=== PATIENT | male | born 1945 | race Caucasian/White ===

== ENCOUNTER 2023-09-09 04:15 | Inpatient (IN) | payer OTHER ==
[~2023-09-09] VITALS: Ht 165.1 cm; Wt 49.0 kg
[2023-09-09 05:08] VITALS: PULSE 105; RESP 28; O2SAT 96
[2023-09-09] MEDS: SODIUM CHLORIDE 0.9% 1,000 ML IV ONE ×2 (05:15→09:30)
[2023-09-09] MEDS: ONDANSETRON HCL 4 MG/2 ML VIAL IV ONE ×2 (05:43→07:47)
[2023-09-09 05:52] LABS: Basophils # (auto) 0 10 ^3/uL (0-0.2); Eosinophils # (auto) 0 10 ^3/uL (0-0.8); Hematocrit 32.4 % (41.0-53.0); Hemoglobin 10.6 g/dL (13.5-17.5); Lymphocytes # (auto) 0.1 10 ^3/uL (0.4-5.4); Lymphocytes % (auto) 1.2 % (10.0-50.0); Mean Corpuscular Hemoglobin 27.2 pg (28.0-32.0); Mean Corpuscular Hgb Conc. 32.6 g/dL (32.0-36.0); Mean Corpuscular Volume 83.6 fL (80.0-100.0); Monocytes # (auto) 0.3 10 ^3/uL (0-1.3); Neutrophils # (auto) 6.6 10 ^3/uL (1.6-8.6); Neutrophils % (auto) 94.8 % (37.0-80.0); Red Blood Cells 3.88 10^6/uL (4.5-5.90); Red Cell Distribution Width 15.9 % (11.8-14.3); White Blood Cell 6.9 10^3/uL (4.4-10.8)
[2023-09-09 06:13] LABS: Alanine Aminotransferase 18 U/L (7-40); Albumin 3.3 g/dL (3.2-4.8); Alkaline Phosphatase 172 U/L (46-116); Anion Gap 11 (5-15); Aspartate Aminotransferase 43 U/L (13-40); BUN/Creatinine Ratio 25.5 (10.0-20.0); Blood Urea Nitrogen 28 mg/dL (9-23); Calcium 9.2 mg/dL (8.5-10.1); Carbon Dioxide 21 mmol/L (20-30); Chloride 109 mmol/L (98-107); Glucose 134 mg/dL (74-106); Potassium 3.1 mmol/L (3.5-5.1); Sodium 141 mmol/L (136-145); Total Protein 5.2 g/dL (5.7-8.2)
[2023-09-09 06:15] VITALS: PULSE 86; RESP 18; O2SAT 99
[2023-09-09] MEDS: NOREPINEPHRINE 8 MG/250ML KIT 250 ML IV ONE (07:30)
[2023-09-09] MEDS: NOREPINEPHRINE 8 MG/250ML KIT 250 ML IV SCH (07:30)
[2023-09-09] MEDS: guaiFENesin-DM 100/10mg/5ml SYR PO ONE (07:46)
[2023-09-09 09:29] VITALS: PULSE 78; RESP 16; O2SAT 96
[2023-09-09] MEDS ORDERED: NITROGLYCERIN 0.4 MG SL TAB SL PRN (09:30)
[2023-09-09] MEDS ORDERED: ONDANSETRON HCL 4 MG/2 ML VIAL IV PRN (09:30)
[2023-09-09] MEDS ORDERED: VANCOMYCIN PER PHARMACY 0 MG IV SCH (09:30)
[2023-09-09 09:49] LABS: INR 1.31 (0.9-1.15); Prothrombin Time 13.6 sec (9.3-11.8)
[2023-09-09] MEDS: VANCOMYCIN 750mg/150ml 150 ML IV ONE (10:00)
[2023-09-09 10:16] VITALS: BP 106/62; PULSE 74; RESP 18; RESP 21; TEMP 98.3; O2SAT 97
[2023-09-09] MEDS: ALBUTEROL SULF 2.5 MG/0.5ML(0.5%) NEB SOLN NEB ONE (10:16)
[2023-09-09 10:26] VITALS: PULSE 78; RESP 22; O2SAT 99
[2023-09-09 10:48] LABS: Base Excess -4.8 mmol/L (-2.0-2.0)
[2023-09-09 11:08] LABS: Urine Bacteria None Seen /hpf (None Seen)
[2023-09-09 11:38] LABS: Urine Blood Negative /uL (Negative); Urine Clarity Clear (Clear); Urine Color Yellow (Yellow); Urine Protein, UAD 1+ (Negative); Urine Specific Gravity 1.021 (1.001-1.035); Urine Urobilinogen 3 mg/dL (Negative); Urine WBC 4 /hpf (0 - 3)
[2023-09-09] MEDS: PIPERACILLIN-TAZOB 3.375GM 100 ML IV SCH (12:00)
[2023-09-09] MEDS: POTASSIUM CHL 20 Meq TABLET PO ONE (13:06)
[2023-09-09] MEDS: PANTOPRAZOLE 40 MG/10 ML VIAL INJ IV SCH (14:50)
[2023-09-09] MEDS: PROCHLORPERAZINE EDISYLATE 5 MG/ML 2ML VIAL IV PRN (14:50)
[2023-09-09 17:15] LABS: Alanine Aminotransferase 16 U/L (7-40); Albumin 3.2 g/dL (3.2-4.8); Alkaline Phosphatase 161 U/L (46-116); Anion Gap 10 (5-15); Aspartate Aminotransferase 35 U/L (13-40); BUN/Creatinine Ratio 29.8 (10.0-20.0); Blood Urea Nitrogen 31 mg/dL (9-23); Calcium 8.9 mg/dL (8.5-10.1); Carbon Dioxide 21 mmol/L (20-30); Chloride 111 mmol/L (98-107); Glucose 115 mg/dL (74-106); Potassium 3.4 mmol/L (3.5-5.1); Sodium 142 mmol/L (136-145)
[2023-09-09 17:16] LABS: Bilirubin, Total 1.1 mg/dL (0.2-1.0)
[2023-09-10] MEDS: VANCOMYCIN 750mg/150ml 150 ML IV SCH (04:10)
[2023-09-10 04:47] LABS: Basophils # (auto) 0 10 ^3/uL (0-0.2); Basophils % (auto) 0.1 % (0.0-2.0); Eosinophils # (auto) 0 10 ^3/uL (0-0.8); Hematocrit 30.4 % (41.0-53.0); Hemoglobin 10.1 g/dL (13.5-17.5); Lymphocytes # (auto) 0.2 10 ^3/uL (0.4-5.4); Lymphocytes % (auto) 5.3 % (10.0-50.0); Mean Corpuscular Hemoglobin 27.9 pg (28.0-32.0); Mean Corpuscular Hgb Conc. 33.2 g/dL (32.0-36.0); Monocytes # (auto) 0.2 10 ^3/uL (0-1.3); Monocytes % (auto) 5.5 % (0.0-12.0); Neutrophils # (auto) 2.9 10 ^3/uL (1.6-8.6); Neutrophils % (auto) 89.1 % (37.0-80.0); Red Blood Cells 3.62 10^6/uL (4.5-5.90); Red Cell Distribution Width 15.7 % (11.8-14.3); White Blood Cell 3.2 10^3/uL (4.4-10.8)
[2023-09-10 04:54] LABS: Alanine Aminotransferase 15 U/L (7-40); Albumin 3.1 g/dL (3.2-4.8); Alkaline Phosphatase 136 U/L (46-116); Anion Gap 9 (5-15); Aspartate Aminotransferase 28 U/L (13-40); Blood Urea Nitrogen 28 mg/dL (9-23); Calcium 8.9 mg/dL (8.5-10.1); Carbon Dioxide 20 mmol/L (20-30); Chloride 112 mmol/L (98-107); Glucose 114 mg/dL (74-106); Potassium 3.1 mmol/L (3.5-5.1); Sodium 141 mmol/L (136-145)
[2023-09-10 04:55] LABS: Bilirubin, Total 1.1 mg/dL (0.2-1.0)
[2023-09-10] MEDS: POTASSIUM CHL 20 Meq TABLET PO ONE (06:32)
[2023-09-10] MEDS: POTASSIUM CHL 20MEQ/100ML 100 ML IV SCH (07:00)
[2023-09-10 07:30] VITALS: PULSE 119; RESP 26; O2SAT 94
[2023-09-10] MEDS ORDERED: SORE THROAT SPRAY 6OZ BOTTLE MT PRN (07:45)
[2023-09-10] MEDS: MORPHINE SULFATE INJ 2 MG/ml SYRG IV PRN (08:47)
[2023-09-10] MEDS ORDERED: MORPHINE SULFATE INJ 2 MG/ml SYRG IV PRN (09:30)
[2023-09-10] MEDS ORDERED: FUROSEMIDE 40 MG/4 ML VIAL IV ONE (11:45)
[2023-09-10 12:00] VITALS: PULSE 74; RESP 21; O2SAT 97
[2023-09-10] MEDS: IPRATROPIUM BROM 0.5 MG/2.5ML INH SOL NEB SCH (12:00)
[2023-09-10] MEDS: ALBUTEROL SULF 2.5 MG/0.5ML(0.5%) NEB SOLN NEB SCH (12:00)
[2023-09-10 12:10] VITALS: PULSE 78; RESP 22; O2SAT 100
[2023-09-10] MEDS: FUROSEMIDE 20 MG/2 ML VIAL IV ONE (12:43)
[2023-09-10] MEDS: SODIUM CHLORIDE 0.9% 1,000 ML IV ONE (12:45)
[2023-09-10] MEDS ORDERED: NOREPINEPHRINE 8 MG/250ML KIT 250 ML IV SCH (15:45)
[2023-09-10 20:00] VITALS: PULSE 100; RESP 24; O2SAT 93
[2023-09-11] VITALS (9 sets, daily range): BP systolic 87–115; BP diastolic 47–67; PULSE 59–104; RESP 17–22; TEMP 96.7–98; O2SAT 85–92
[2023-09-11] MEDS: MORPHINE SULFATE INJ 2 MG/ml SYRG IV PRN (04:41)
[2023-09-11] MEDS: LORazepam 2MG/ML-1ML VIAL IV PRN (13:28)
[2023-09-12] VITALS (7 sets, daily range): BP systolic 89–124; BP diastolic 51–75; PULSE 23–101; RESP 18–92; TEMP 96.4–98.7; O2SAT 77–95
[2023-09-12] MEDS: SOD CHL 0.45% 1,000 ML IV SCH (12:33)
[2023-09-13 01:00] VITALS: BP 124/75; PULSE 64; RESP 15; TEMP 96.4; O2SAT 78
[2023-09-13 05:00] VITALS: BP 107/65; PULSE 100; RESP 17
[2023-09-13 09:00] VITALS: BP 107/67; PULSE 81; RESP 20; TEMP 97; O2SAT 83
[2023-09-13 10:00] VITALS: O2SAT 87
[2023-09-13 13:00] VITALS: BP 84/55; PULSE 91; RESP 22; TEMP 97.6; O2SAT 80
== END 2023-09-13 21:28 | DRG 871 ==
LOC: ER 04:15 → EDBD 04:15 → OVERFLOW 09:22 → TELE 09:22 → UNDOADMIN 09:22 → OVERFLOW 09-10 18:36 → WEST WING 09-11 02:57
PROVIDERS: ADMIT Internal Medicine; ATTEND Student in an Organized Health Care Education/Training Program
PROC: 0W9G3ZZ Drainage of Peritoneal Cavity, Percutaneous Approach (ICD-10-PCS; principal; 2023-09-10)
DX: A41.9 Sepsis, unspecified organism (principal); J18.9 Pneumonia, unspecified organism; R65.21 Severe sepsis with septic shock; J96.01 Acute respiratory failure with hypoxia; J69.0 Pneumonitis due to inhalation of food and vomit; C15.9 Malignant neoplasm of esophagus, unspecified; I24.89 Other forms of acute ischemic heart disease; Z68.1 Body mass index [BMI] 19.9 or less, adult; R62.7 Adult failure to thrive; C10.9 Malignant neoplasm of oropharynx, unspecified; N18.30 Chronic kidney disease, stage 3 unspecified; K21.9 Gastro-esophageal reflux disease without esophagitis; K56.41 Fecal impaction; K80.20 Calculus of gallbladder without cholecystitis without obstruction; Z66 Do not resuscitate; Z85.01 Personal history of malignant neoplasm of esophagus; Z51.5 Encounter for palliative care; Z85.818 Personal history of malignant neoplasm of other sites of lip, oral cavity, and pharynx
CPT/HCPCS: 36415; 36600; 71045; 71250; 74176; 76705; 76942; 80053; 81001; 82805; 83880; 84484; 85025; 85610; 87040; 87086; 93005; 93306; 94640; 99291; G0378; J2405; J2470; J2543; J3480